=== PATIENT | male | born 1945 | race Caucasian/White ===

== ENCOUNTER → 2016-04-07 | Outpatient (CLI) | payer BC ==
--- NOTE | 2016-04-07 10:41 | DIAGNOSTIC IMAGING REPORT ---
TWO VIEW CHEST CLINICAL HISTORY: Bronchitis. FINDINGS: PA and lateral chest radiographs are compared to study dated 09/10/2010. The heart is mildly enlarged. The pulmonary vasculature is noncongested. Chronic interstitial thickening is similar to previous. The lungs and pleural spaces are otherwise clear. There is no pneumothorax. The skeletal structures are osteopenic. Mild degenerative change is noted in the thoracic spine. IMPRESSION: Mild cardiac enlargement with no active disease in the chest. Electronically signed by: Nicholas Castillo M.D. 04/07/2016 10:39 AM Dictated Date/Time: 04/07/2016 10:38 AM
== END | disposition home or self-care (01) ==
LOC: C.RAD 10:12
PROVIDERS: ATTEND Internal Medicine
DX: J40 Bronchitis, not specified as acute or chronic (principal)

== ENCOUNTER → 2016-08-10 | Outpatient (CLI) | payer BC ==
[2016-08-10 13:31] LABS: ESTIMATED AVERAGE GLUCOSE 123 mg/dl; HA1C FLAG Normal (Normal)
[2016-08-10 14:32] LABS: BLOOD UREA NITROGEN 13 mg/dl (7-18); BUN/CREATININE RATIO 12.7 (10-20); CARBON DIOXIDE 29 mmol/L (21-32); CHLORIDE 107 mmol/L (98-107); GLUCOSE 106 mg/dl (70-99); SODIUM 142 mmol/L (136-145)
[2016-08-10 14:35] LABS: CHOLESTEROL 133 mg/dl (0-200); CHOLESTEROL/HDL RATIO 2.5; HDL CHOLESTEROL 54 mg/dl; TRIGLYCERIDES 83 mg/dl (0-150); VERY LOW DENSITY LIPOPROT CALC 17 mg/dl
== END | disposition home or self-care (01) ==
LOC: C.LABSPEC 12:10
PROVIDERS: ATTEND Internal Medicine
DX: R73.9 Hyperglycemia, unspecified (principal); I10 Essential (primary) hypertension; E78.5 Hyperlipidemia, unspecified

== ENCOUNTER → 2017-02-11 | Outpatient (CLI) | payer BC ==
[2017-02-11 12:54] LABS: BASO % 0.3 %; BASO ABS # 0.02 K/uL (0-0.2); COMPLETE YES; EOS % 2.4 %; HEMATOCRIT 42.8 % (42-52); IG% 0.2 %; LYMPH % 26.9 %; LYMPH ABS # 1.78 K/uL (1.2-3.4); MEAN CELL VOLUME 94.5 fL (80-100); MEAN CORPUSCULAR HEMOGLOBIN 31.8 pg (25-34); MEAN CORPUSCULAR HGB CONC 33.6 g/dl (32-36); MEAN PLATELET VOLUME 9.9 fL (7.4-10.4); MONO % 10.4 %; NEUT % 59.8 %; PLATELET COUNT 220 K/uL (130-400); RED BLOOD COUNT 4.53 M/uL (4.7-6.1); WHITE BLOOD COUNT 6.62 K/uL (4.8-10.8)
[2017-02-11 12:58] LABS: ESTIMATED AVERAGE GLUCOSE 120 mg/dl; HA1C FLAG Normal (Normal)
[2017-02-11 13:50] LABS: ALT/SGPT 28 U/L (12-78); AST/SGOT 17 U/L (15-37); BLOOD UREA NITROGEN 16 mg/dl (7-18); BUN/CREATININE RATIO 15.3 (10-20); CALCIUM 8.6 mg/dl (8.5-10.1); CARBON DIOXIDE 23 mmol/L (21-32); CHLORIDE 105 mmol/L (98-107); CHOLESTEROL 142 mg/dl (0-200); CREATININE 1.06 mg/dl (0.60-1.40); GLUCOSE 98 mg/dl (70-99); POTASSIUM 3.9 mmol/L (3.5-5.1); SODIUM 139 mmol/L (136-145)
[2017-02-11 14:00] LABS: ALB/GLOB RATIO 1.1 (0.9-2); ALKALINE PHOSPHATASE 85 U/L (45-117); CHOLESTEROL/HDL RATIO 2.8; HDL CHOLESTEROL 50 mg/dl; TRIGLYCERIDES 138 mg/dl (0-150); VERY LOW DENSITY LIPOPROT CALC 28 mg/dl
[2017-02-11 14:33] LABS: LYME DISEASE AB IGG NEG (NEG); LYME DISEASE AB IGM NEG (NEG)
== END | disposition home or self-care (01) ==
LOC: C.LABSPEC 12:23
PROVIDERS: ATTEND Internal Medicine
DX: I10 Essential (primary) hypertension (principal); E78.5 Hyperlipidemia, unspecified; R73.9 Hyperglycemia, unspecified; R53.83 Other fatigue; M25.50 Pain in unspecified joint

== ENCOUNTER → 2017-02-11 | Outpatient (CLI) | payer BC | LOC: C.LABSPEC 17:41 | PROVIDERS: ATTEND Internal Medicine | DX: Z12.11 Encounter for screening for malignant neoplasm of colon (principal) ==

== ENCOUNTER → 2017-08-12 | Outpatient (CLI) | payer BC ==
[2017-08-12 14:25] LABS: BLOOD UREA NITROGEN 10 mg/dl (7-18); CARBON DIOXIDE 28 mmol/L (21-32); CHOLESTEROL 125 mg/dl (0-200); CREATININE 1.05 mg/dl (0.60-1.40); GLUCOSE 104 mg/dl (70-99); LDL CHOLESTEROL (DIRECT) 67 mg/dl; POTASSIUM 3.9 mmol/L (3.5-5.1); SODIUM 140 mmol/L (136-145)
[2017-08-13 06:15] LABS: HEMOGLOBIN A1C 5.9 % (4.5-5.6)
== END | disposition home or self-care (01) ==
LOC: C.LABSPEC 12:26
PROVIDERS: ATTEND Internal Medicine
DX: R73.9 Hyperglycemia, unspecified (principal); I10 Essential (primary) hypertension; E78.5 Hyperlipidemia, unspecified

== ENCOUNTER 2019-08-31 09:43 | Inpatient (IN) ==
--- NOTE | 2019-08-31 11:50 | XCELERA ---
[id number]
[2019-08-31] MEDS ORDERED: ASPIRIN 325 MG ECTAB PO ONE (12:43)
--- NOTE | 2019-08-31 13:07 | Pre Anesthesia Assessment ---
Date of Service August 31, 2019 Pre Sedation Assessment Vital Signs Temp Pulse Resp BP Pulse Ox 08/31/19 12:10 37.4 C 69 18 147/83 H 98 Cardiovascular + regular rate Respiratory + respiratory effort normal Pre-Sedation Airway Assessment Smoking Status: Never smoker Hx Sleep Apnea: No Short, Thick Neck: No Thyromental Distance: > or= 3.5 Finger Breadths Oral Cavity: + Dentures Mallampati Class: I ASA: ASA3 NPO Status Date of Last Intake of Fluids: 08/30/19 Time of Last Intake of Fluids: 21:00 Date of Last Intake of Solid Food: 08/30/19 Time of Last Intake of Solid Foods: 21:00 Procedure Planning Contraindications for Sedation: none Current Medications Reviewed: Yes Notes The planned sedation has been discussed with the patient. Informed Consent was obtained. I have identified the patient, determined the appropriateness of sedation and have assessed the patient immediately prior to the procedure. All medicine(s) and interventions are by my order.
[2019-08-31] MEDS ORDERED: NITROGLYCERIN/D5W 100MCG/ML 20ML SYR ONE (13:28)
[2019-08-31] MEDS ORDERED: HEPARIN (PORCINE) 1000 UNIT/ML 10 ML (CATH LAB USE ONLY) ONE ×2 (13:28→15:08)
[2019-08-31] MEDS ORDERED: MIDAZOLAM HCL 1 MG/ML 2ML VIAL ONE ×2 (13:28→15:10)
[2019-08-31] MEDS ORDERED: fentaNYL citrate 100 MCG/2 ML VIAL ONE (13:28)
[2019-08-31] MEDS ORDERED: NiCARDipine HCL INJ 2.5 MG/ML 10 ML AMP ONE (13:28)
[2019-08-31 13:57] LABS: Hematocrit (blood only) 44.2 % (42-52); Mean Corpuscular Hemoglobin 31.5 pg (25-34); Mean Corpuscular Hgb Conc 33.9 g/dL (32-36); Mean Corpuscular Volume 92.9 fL (80-100); Mean Platelet Volume 9.8 fL (7.4-10.4); Platelet Count 253 K/uL (130-400); RDW Coefficient of Variation 13.1 % (11.5-14.5); RDW Standard Deviation 44.5 fL (36.4-46.3); Red Blood Count 4.76 M/uL (4.7-6.1); White Blood Count 6.88 K/uL (4.8-10.8)
[2019-08-31 13:58] LABS: Est GFR (African American) 72.8; Est GFR (Non-African American) 62.8; Potassium 3.8 mmol/L (3.5-5.1)
[2019-08-31 14:00] LABS: Prothrombin Time 10.3 Seconds (9.0-12.0)
[2019-08-31] MEDS ORDERED: DOPamine 400MG / 250ML D5W (CATH LAB USE ONLY) ONE (14:06)
[2019-08-31] MEDS ORDERED: ONDANSETRON INJ 2 MG/ML 2 ML VIAL ONE (14:08)
--- NOTE | 2019-08-31 15:31 | Cardiac Catheterization ---
[facility] Data: Digital Production Manager Cardiac Status Clinical evaluation leading to the procedure CAD Presenation: Positive Stress Test Diagnostic Physicians Name: Foster Edwards MD Closure Device Recommendations: PCI without planned CABG Cardiac Cath Procedure Full Procedure Date August 31, 2019 Pre-Procedure Diagnosis Pre-Procedure Diagnosis: Angina and Positive Stress Test AUC Score AUC Score: 7 Post-Procedure Diagnosis Post-Procedure Diagnosis: Severe CAD Procedure(s) Performed Procedure(s) Performed: Coronary Angiography and Left Heart Cath Investment Specialist Foster Edwards MD Stock Replenisher(s) none Estimated Blood Loss Estimated Blood Loss: 10cc Medication(s) Medication(s): Dopamine, Fentanyl, Heparin, Lidocaine 1%, Nicardipine, Nitroglycerin and Versed Summary of Findings Procedure performed: Left heart catheterization, coronary angiography Staff roll off driver: Foster Edwards MD Indication: The patient is a 74-year-old gentleman without a known history of cardiac disease who is been having exertional symptoms of chest discomfort. He underwent stress echocardiography today which was positive in the early stages for evidence of ischemia. Procedure detail: The patient was informed of the risk benefits and alternatives to the intended procedure. He understood and wished to proceed. He was taken to the cardiac catheterization suite in a fasting state. Conscious sedation was administered per protocol and the patient was monitored electrocardiographically throughout today's procedure. The right radial area was prepped and draped in usual sterile fashion. This area was anesthetized using subcutaneous ministration of lidocaine solution. The right radial artery was accessed using Seldinger technique and a 5 [place] arterial sheath was placed at the site over guidewire. The sheath was used to felt a passage of the cardiac catheters for selective c oronary angiography and left heart catheterization. Angiography performed in multiple orthogonal views prior to removal of the catheter. There was initial period of hypotension associated with administration of vasodilators. This was reversed with fluid administration and a transient period of dopamine infusion. Patient otherwise tolerated procedure well. There were no other complications. Equipment used: 5 [place] 4 Coronary angiography Left main: Left main was short and bifurcated into the left anterior descending and left circumflex arteries Left anterior descending: Left anterior descending was a large transapical vessel. He had a complex 90% lesion in its proximal portion. It produced 2 large diagonal branches both of which he had moderate disease throughout. There were luminal irregularities in the distal portion of the vessel. Left circumflex: Left circumflex was a nondominant vessel. It produced essentially a single large OM system. There was a medium size ongoing AV groove vessel. There was a 50% stenosis in the proximal portion of the left circumflex. The remainder of the vessel had no obstructive lesions Right coronary artery: The right coronary artery was noted to be calcified. He had luminal irregularities throughout its course. Most severe stenosis is approximately 50% in its proximal portion. Pullback across the aortic valve demonstrated a aortic valve gradient of 20 mmHg Hemodynamics Rest Ao:: 56/34 mmHg Final Ao: 118/61 mmHg LV: 127/4 mmHg with left ventricular end-diastolic pressure of 16 mmHg Recommendations Recommendations: PCI without planned CABG Specimens Specimens: None Radiation Exposure (mGy) 798 Contrast (mls) 50 Fluids (cc crystalloids) Fluids (cc crystalloids): 910 Procedural Complication(s) Transient period of hypotension after administration of vasodilators and sedation Disposition PCU I attest to the content of the Intraoperative Record and any orders documented therein. Any exceptions are noted below. [facility] Procedure Codes Cardiac Catheterization Procedure 1: Cardiovascular Cath Procedures: 17936 Coronaries and LHC (+/-LV) Moderate Sedation Procedure 1: Sedation/Anesthesia: 68590 Mod Sedation by the same physician;Init15 Min Child Age 5 & Up Procedure 2: Sedation/Anesthesia: 85771 Mod Sedation by the same physician; Ea [id number] Minutes PG Care Time/CCT Total # of Minutes Spent Total Time Spent with Patient: Total time spent is greater than 50% in coordination of care (as documented) at patient's floor/unit and/or counseling patient:
[2019-08-31] MEDS ORDERED: TICAGRELOR 90 MG TAB PO ONE (16:01)
[2019-08-31] MEDS ORDERED: ACETAMINOPHEN 325 MG TAB PO PRN (16:24)
[2019-08-31] MEDS ORDERED: ONDANSETRON INJ 2 MG/ML 2 ML VIAL IV PRN (16:24)
[2019-08-31] MEDS ORDERED: SODIUM CHLORIDE 0.9% 1000ML 1,000 ML IV SCH (16:30)
--- NOTE | 2019-08-31 16:37 | Post Anesthesia Assessment ---
Date of Service August 31, 2019 Post Sedation Assessment Vital Signs Temp Pulse Resp BP Pulse Ox 08/31/19 16:25 65 18 120/75 96 08/31/19 16:10 78 18 139/72 96 08/31/19 12:10 99.3 F 69 18 147/83 H 98 Recovery Score Activity: Moves 4 extremities Respiration: Deep Breath/Cough Circulation: +/-20% PreAnes Value Consciousness: Fully Awake Oxygen Saturation: > 92% On Room Air Post Anesthesia Score: 10 Discharge Sedation Level of Care: Fast Track Phase II Post Sedation Plan On clinical assessment, the patient appears to have tolerated the sedation without complications. Patient is recovering as anticipated. Patient will continue to be monitored by nursing and may be discharged when sedation discharge criteria are met per below protocol. Upon Completions of procedure up to 15 minutes continue every 5 minute vital signs and the P.A.R. score; then discharge to a Phase I or Fast Track to Phase II per the following guidelines: * Discharge Patient to appropriate Phase II area if PAR is 8 or greater or return to pre- procedure baseline. The post - procedure orders will be as directed. * If PAR score is less than 8 or not return to pre-procedure baseline then patient will follow Phase I monitoring till PAR is reached for Phase II. The Phase I may be done in procedure room or may call to secure a Phase I area. * If naloxone or flumazenil are used for reversal, hold in Phase I for continued monitoring from when last reversal dose was given for a minimum of 60 minutes or longer pending the nurse and/or physician discretion of patient condition before discharge to Phase II. Please call the Sedation Physician to re-evaluate and complete post-note for discharge to Phase II area. Do NOT discharge from procedure sedation or Phase 1 until post- sedation evaluat ion note is complete by procedure /sedation MD Sedation Discharge Instructions to be given to the patient at discharge to home.
--- NOTE | 2019-08-31 16:43 | Cardiac Catheterization ---
[facility] Data: Market Research Intern Cardiac Status Clinical evaluation leading to the procedure CAD Presenation: Positive Stress Test Anginal Classification: CCS III Heart Failure: No Cardiogenic Shock within 24 Hours: No Cardiac Arrest within 24 Hours: No Imaging Studies Past 6 Months: Yes Stress Studies Past 6 Months: Yes Stress Echocardiogram: Yes - Positive and Risk/Extent of Ischemia (High) Diagnostic Physicians Name: Foster Lunsford MD Status: Elective Closure Device Percutaneous Entry Location: Radial Closure Device: Radial Band Recommendations: PCI without planned CABG PCI Indication: + Stress Test and Unstable Angina Lesion Segment Name: ostial LAD Culprit Artery: Yes Stenosis Prior to Rx (%): 95 Chronic Total Occlusion: No IVUS: Yes FFR: No Pre-Procedure BRIAN Flow: 2 Previously Treated Lesion: No Lesion Complexity: High/C Lesion Length (mm): 12 Thrombus Present: Yes Bifurcation Lesion: Yes Guidewire Across Lesion: Stenosis Post-Procedure (%): 0 Post-Procedure BRIAN Flow: 3 Devices(s) Deployed: Yes Yes Intraprocedure Events Significant Disection: No Perforation: No Cardiac Cath Procedure Full Procedure Date August 31, 2019 Pre-Procedure Diagnosis Pre-Procedure Diagnosis: Angina and Positive Stress Test AUC Score AUC Score: 7 Post-Procedure Diagnosis Post-Procedure Diagnosis: Severe CAD and Successful PCI Procedure(s) Performed Procedure(s) Performed: Coronary Angiography, Left Heart Cath, Drug Eluting Stent, IVUS and Fractional Flow [place] Check Writer Salesperson Foster Lunsford MD Therapeutic Massage Technician(s) Sylvestre Estimated Blood Loss Estimated Blood Loss: 20 Medication(s) Medication(s): Fentanyl, Heparin, Lidocaine 1%, Nicardipine, Nitroglycerin and Versed Medication(s): Ticagrelor Summary of Findings Indication: High risk abnormal stress test Access: 6 Fr slender right radial artery Catheters: JL 3.5 guide Findings: For full details of patient's coronary angiography please see cath report dictated by Dr. Edwards. Briefly, patient found to have an acute 95+% ostial LAD stenosis along with moderate ostial circumflex disease. Decision to further evaluate with IVUS and proceed with possible PCI. IVUS/FFR of proximal circumflex Left main cannulated with JL 3.5 guide Second Time Worker 50 wire passed into distal circumflex [place] IVUS catheter placed into mid circumflex Pullback revealed moderate eccentric plaque involving ostial/proximal circumflex. Left main with circumferential calcification, mild to moderate stenosis, minimal CSA 9.7 mm. ACIST FFR catheter placed into mid circumflex Pd/Pa 0.97 In the setting of moderate nonobstructive circumflex disease decision to proceed with PCI of LAD -- PCI -- Antithrombotic therapy: Heparin, ticagrelor Procedure: Second Time Worker [address] and circumflex Whisper wire passed across ostial LAD lesion into distal LAD Ostial LAD lesion predilated with 2.5 and 2.75 compliant balloons Dilated lesion stented with 2.75 x 15 mm Xience Angelica drug-eluting stent Stent post-dilated with 3.0 noncompliant balloon IC vasodilators administered for spasm Repeat IVUS into LAD showed well apposed LAD stent extending back to distal aspect of left main Post procedure BRIAN 3 flow, stent reasonably expanded with minimal residual stenosis and no apparent cardiac complications. Unchanged moderate stenosis in ostial circumflex. Arterial Closure: TR band Summary: 1. Successful PCI of ostial LAD with single drug-eluting stent (2.75 x 15 mm Xience Angelica; postdilated with 3.0 NC). 2. Calcified, eccentric moderate nonobstructive ostial circumflex disease (iFR 0.97). Recommendations: To PCU for continued monitoring Loaded with ticagrelor 180 mg in cath Continue dual-antiplatelet therapy for at least 1 year Continue statin, and ASCVD risk factor modification Consult cardiac Rehab Hemodynamics Rest Ao:: 122/59/76 Final Ao: 125/63/97 LV: -- Recommendations Recommendations: PCI without planned CABG Specimens Specimens: None Radiation Exposure (mGy) 3021 Contrast (mls) 140 Fluids (cc crystalloids) Fluids (cc crystalloids): 1082 Drains Drains: none Anesthesia moderate Procedural Complication(s) None Disposition PCU I attest to the content of the Intraoperative Record and any orders documented therein. Any exceptions are noted below. [facility] Card Cath Procedure Codes Cardiac Catheterization Procedure 1: Cardiovascular Cath Procedures: 56012 (Doppler) Pressure Wire Therapeutic Services & Ancillary Proc Procedure 1: Cardiovascular Tx and Anc Procedures: 03914 IV Ultrasound (Coronary or Graft) Procedure 2: Cardiovascular Tx and Anc Procedures: 17695 IV Ultrasound Ea addl vessel Moderate Sedation Procedure 1: Sedation/Anesthesia: 70024 Mod Sedation by a different physician ;Init15 Min Child Age 5&Up Procedure 2: Sedation/Anesthesia: 55836 Mod Sedation by a different physician;Ea Additional 15 Minutes Stenting Procedure 1: Cardiovascular Stent Procedures: 00880 Perc transcatheter placement of intracoronary stent(s), with ang PG Care Time/CCT Total # of Minutes Spent Total Time Spent with Patient: Total time spent is greater than 50% in coordination of care (as documented) at patient's floor/unit and/or counseling patient:
[2019-09-01] MEDS ORDERED: TICAGRELOR 90 MG TAB PO SCH (07:00)
[2019-09-01 07:52] LABS: Basophils # (auto) 0.03 K/uL (0-0.2); Basophils % (auto) 0.4 %; Eosinophils # (auto) 0.16 K/uL (0-0.5); Eosinophils % (auto) 2.1 %; Hematocrit (blood only) 39.7 % (42-52); Hemoglobin 13.3 g/dL (14.0-18.0); Immature Granulocytes # (auto) 0.03 K/uL (0.00-0.02); Immature Granulocytes % (auto) 0.4 %; Lymphocytes % (auto) 21.9 %; Mean Corpuscular Hemoglobin 31.1 pg (25-34); Mean Corpuscular Hgb Conc 33.5 g/dL (32-36); Mean Corpuscular Volume 92.8 fL (80-100); Mean Platelet Volume 9.4 fL (7.4-10.4); Monocytes # (auto) 0.82 K/uL (0.11-0.59); Monocytes % (auto) 10.5 %; Neutrophils # (auto) 5.04 K/uL (1.4-6.5); Neutrophils % (auto) 64.7 %; Platelet Count 220 K/uL (130-400); RDW Coefficient of Variation 13.2 % (11.5-14.5); RDW Standard Deviation 44.9 fL (36.4-46.3); Red Blood Count 4.28 M/uL (4.7-6.1); White Blood Count 7.78 K/uL (4.8-10.8)
[2019-09-01] MEDS ORDERED: lisinopriL 20 MG TAB PO SCH (09:00)
[2019-09-01] MEDS ORDERED: ASPIRIN 81 MG ECTAB PO SCH (09:00)
[2019-09-01] MEDS ORDERED: PANTOprazole 40 MG TAB PO SCH (09:00)
[2019-09-01] MEDS ORDERED: ATORVASTATIN 40 MG TAB PO SCH (09:00)
--- NOTE | 2019-09-01 09:27 | Discharge Summary ---
Date of Service September 01, 2019 Admission HPI Per Admitting Provider Mr. Granado is a 74-year-old male with a past medical history significant for hypertension, dyslipidemia, and GERD who was referred to [facility] for a stress echocardiogram by his PCP due to complaints of exertional chest tightness. The patient states that he started walking outside this spring, and he noted that with ambulating up an incline, he would have substernal chest tightness with associated shortness of breath. His symptoms resolved when he would slow down his pace. Over the last 1-2 weeks, he began noting the discomfort with walking on ground level. Once again, his symptoms would resolve with slowing down. He did not experience associated nausea, vomiting, or diaphoresis, and he never experienced any rest symptoms. Due to the chest discomfort, he was referred for a stress echo by his PCP. The patient exercised for a total of 3:26 minutes. He developed chest tightness and shortness of breath 3 minutes into exercise. His EKG was abnormal with ST segment depression with exercise, and echocardiogram also showed distal anterolateral wall motion abnormality with exercise. The patient's chest discomfort resolved 2 minutes into recovery. Discharge Data Consultations 08/31/19 16:29 Consult Cardiac Rehabilitation Routine Procedures Performed Operation Date: 08/31/19 13:30 Actual Procedures s Drug Eluting Stent SGl Vessel - Huy Lunsford MD p Cath, Left with Cors and Vent - Huy Edwards MD s Cineradiography w/Routine Exam - Huy Lunsford MD s IVUS Coronary Single Vessel - Huy Lunsford MD s IVUS Coronary each ADDL Vessel - Huy Lunsford MD s Fraction Flow Lane SGL Ves - uHy Lunsford MD Hospital Course (1) CAD (coronary artery disease): After grossly positive, high risk stress test patient underwent cardiac catheterization which revealed a complex, acute appearing 95% proximal LAD stenosis along with 50% ostial circumflex stenosis. Left main/ostial circumflex was evaluated with IVUS and FFR and found to be calcified, chronic and nonobstructive. Underwent PCI of ostial LAD with placement of a single drug- eluting stent (2.75 x 15 mm Xience Angelica). Procedure uncomplicated. Admitted for observation overnight. Had no recurrent chest pain. No arrhythmia on telemetry. On post procedure day 1 no apparent access site complications, labs stable and was feeling well. Discharged on 2 antiplatelet therapy with aspirin, ticagrelor. Follow-up with cardiology in 2 weeks. Discharge Instructions Home Medications lisinopril 20 mg PO DAILY 08/31/19 [History Confirmed 08/31/19] omeprazole 10 mg PO DAILY 08/31/19 [History Confirmed 08/31/19] aspirin 81 mg PO QAM #30 tab 09/01/19 [Rx] atorvastatin 80 mg PO QAM #30 tab 09/01/19 [Rx] ticagrelor [Brilinta] 90 mg PO BID #60 tab 09/01/19 [Rx] Coding Level of Care Code 23561 OBS Care - Discharge Diagnoses CAD (coronary artery disease) I25.10
== END 2019-09-01 14:03 | disposition home or self-care (01) | DRG 247 ==
LOC: CPL 09:43 → CC 09:43 → EDSTATUS 13:30 → 2S 14:28

== ENCOUNTER 2023-10-30 18:06 | Observation (INO) ==
[2023-10-30] MEDS: ONDANSETRON INJ 2 MG/ML 2 ML VIAL IV STA (18:35)
[2023-10-30] MEDS: ASPIRIN 81 MG CHEW PO STA (18:35)
[2023-10-30 18:39] LABS: iSTAT Creatinine 1.3 mg/dl (0.6-1.3); iSTAT Hemoglobin 14.3 g/dl (14.0-18.0); iSTAT Ionized Calcium 1.15 mmol/l (1.12-1.32); iSTAT Potassium 4.2 mmol/L (3.3-5.0)
--- NOTE | 2023-10-30 18:43 | Emergency Department Note ---
Impression & Plan Atypical chest pain ED Provider Note Provider: Yoseph Bates MD DATE OF SERVICE: 10/30/2023 CHIEF COMPLAINT: Chest discomfort, clammy, vomiting HISTORY OF PRESENT ILLNESS: Patient is a 78-year-old gentleman history of stent in 2019 presenting here reporting was clean looking earlier this afternoon about an hour prior to arrival moving large pans. Started feel little clammy and had a little pressure in the chest. Sat down and went to have some food and began to feel very nauseous and vomited. Significant chest pressure and diaphoresis at that time. No syncope. [place] a bit dizzy. Symptoms improved still little bit of pressure on the chest. No abdominal pain. Denies significant shortness of breath. No trauma. Did have stent 4 years ago but found on a stress test as he was having some exercise intolerance. does report he is been a little fatigued recently. No radiation of pain to the arms or jaw or back. PAST MEDICAL HISTORY: As noted above MEDICATIONS: Reviewed home medications SOCIAL HISTORY: , non-smoker PHYSICAL EXAM: GENERAL: alert and oriented in no acute distress on stretcher Head: normocephalic and atraumatic EYES: No injection, discharge or icterus. EOMI. NECK: Trachea midline. ENT: Mucous membranes pink and moist. LUNGS: Airway patent. No retractions. Breath sounds clear with good air entry bilaterally. HEART: Regular rate and rhythm. No chest wall tenderness ABDOMEN: Soft and non-tender, without guarding or rebound. SKIN: Acyanotic, warm, dry, without rashes EXTREMITIES: Without swelling, tenderness or deformity NEUROLOGICAL: No focal deficits. No aphasia. No facial droop or slurred speech. Normal strength and tone in the extremities. Sensation to gross touch normal. Ambulatory. EK bpm sinus rhythm first-degree AV block. Right bundle branch block noted. No acute ST segment elevation or depression with QTc 44 CONTINUOUS CARDIAC MONITORING: was ordered and showed a heart rate of 60s to 80s bpm in normal sinus rhythm Patient's laboratory studies and imaging reviewed. Differential includes Cardiac ischemia, aortic dissection, pulmonary embolism, pneumothorax, pneumonia, pericarditis, myocarditis, esophageal rupture, GERD, cholecystitis, pancreatitis, musculoskeletal, as well as other pathologies. IMPRESSION/MEDICAL DECISION MAKING: Patient with some chest pressure cardiac history. EKG without STEMI. Will give nitro here. Received aspirin and Zofran as well as some IV fluid. Some decreased intake today but no other significant illnesses. Benign abdomen. Doubt acute intra-abdominal pathology or obstruction. Chest x-ray without significant abnormality per radiology report In my interpretation as well. No significant anemia or leukocytosis on blood work. No significant electrolyte abnormality or signs of renal dysfunction. No evidence of hepatitis or pancreatitis. Negative COVID flu and RSV testing. Initial troponin returned at 6.2 normal. Do question if this could be anginal/anginal equivalent in nature. Did receive nitroglycerin here. On reassessment the patient states that symptoms have improved but entirely resolved. Discussed with the patient and given the significant findings that he has with cardiac history and his age and risk factors that recommend further observation and overnight. Patient was agreeable. Hospitalist was consulted. DIAGNOSIS: Chest pain, nausea DISPOSITION: Hospitalist will evaluate Patient was agreeable with this plan. Past Med/Surg History Problem List (Updated 10/30/23 @ 20:56 by Mau Bazan MD) Nausea and vomiting Atypical chest pain (Acute) History of urethral stricture Quadriceps strain Dysuria Testicular pain, right Groin pain Lumbar disc herniation Left L4-5, present since 2013 Disc degeneration, lumbosacral Sensorineural hearing loss (SNHL) of both ears Benign prostatic hyperplasia with urinary hesitancy Prediabetes Primary hypertension Rotator cuff arthropathy of right shoulder Mitral regurgitation Aortic stenosis Mild to moderate with mild to moderate regurgitation as well echocardiogram 08/31/2019 CAD (coronary artery disease) PCI to the proximal LAD with Xience drug-eluting stent 08/31/2019 Dyslipidemia Medical History Splenic laceration Basal cell carcinoma of right cheek Fear of needles Spinal stenosis History of herniated intervertebral disc Degenerative disc disease, lumbar Shoulder problem Acid reflux Tinnitus of both ears Hypertension SNHL (sensorineural hearing loss) Surgical History History of left cataract surgery History of colonoscopy History of heart artery stent Family History Grandmother Family history of diabetes mellitus Social History Smoking Status: Never smoker Second Hand Exposure: No; Do You Dip or Chew Tobacco: No; Hx Alcohol Use: No Hx Substance Use: No Preferred Language: Romansh Communication Ability: Effective Pole Tester Required: No Beliefs That Will Affect Care: None Current Living Situation: Spouse current occupational status: retired Other Information That Helps Us Care for You: No Feels Safe at Home: Yes Safety Concerns: Feels Safe At This Time Assistive Devices: Denture - Upper and Hearing Aid - Bilateral Allergies Allergies Allergy/AdvReac Type Severity Reaction Status Date / Time No Known Allergies Allergy Verified 10/30/23 19:33 Home Meds Home Medications Medication Instructions Recorded Confirmed cholecalciferol (vitamin D3) 125 125 mcg PO DAILY 12/12/21 10/30/23 mcg (5,000 unit) capsule finasteride 5 mg tablet 5 mg PO QAM 10/30/23 10/30/23 Previous Rx's Medication Instructions Recorded aspirin 81 mg tablet,delayed 81 mg PO QAM #30 tabs 09/01/19 release amlodipine 5 mg tablet 5 mg PO DAILY #90 tabs 02/26/23 lisinopril 20 mg tablet 20 mg PO QPM #90 tabs 02/26/23 atorvastatin 80 mg tablet 80 mg PO QAM #90 tabs 03/31/23 omeprazole 20 mg capsule,delayed 20 mg PO DAILY #90 caps 03/31/23 release tamsulosin 0.4 mg capsule 0.4 mg PO BID #60 caps 07/15/23 Results & Data (ED) Vital Signs Vital Signs - 24 hr 10/30/23 18:08 10/30/23 18:12 10/30/23 18:15 Temperature 36.8 C Temperature Source Temporal Artery Scan Pulse Rate 85 80 Pulse Rate [Apical] Pulse Rate from SpO2 Sensor Respiratory Rate 22 Respiratory Effort / Characteristics Non-Labored Spontaneous Respiratory Depth Normal Respiratory Pattern Regular Blood Pressure 130/73 Blood Pressure [Right Arm] Blood Pressure Mean 92 Blood Pressure Mean [Right Arm] Pulse Oximetry 98 98 Oxygen Delivery Method Room Air Room Air Sepsis Recent Fever Within 48 Hours No Sepsis New/Unexplained Change in Mental Status No Sepsis Action Taken by Nursing No Action Required 10/30/23 18:15 10/30/23 18:30 10/30/23 19:25 Temperature Temperature Source Pulse Rate 77 78 Pulse Rate [Apical] Pulse Rate from SpO2 Sensor Respiratory Rate 14 16 Respiratory Effort / Characteristics Respiratory Depth Respiratory Pattern Blood Pressure 153/79 H 116/73 Blood Pressure [Right Arm] Blood Pressure Mean 103 79 Blood Pressure Mean [Right Arm] Pulse Oximetry 98 97 Oxygen Delivery Method Room Air Sepsis Recent Fever Within 48 Hours Sepsis New/Unexplained Change in Mental Status Sepsis Action Taken by Nursing 10/30/23 19:29 10/30/23 19:36 10/30/23 20:00 Temperature Temperature Source Pulse Rate 83 Pulse Rate [Apical] 71 Pulse Rate from SpO2 Sensor 83 Respiratory Rate 17 21 Respiratory Effort / Characteristics Non-Labored Spontaneous Respiratory Depth Normal Respiratory Pattern Regular Blood Pressure 134/70 108/62 Blood Pressure [Right Arm] 116/73 Blood Pressure Mean 91 70 Blood Pressure Mean [Right Arm] 87 Pulse Oximetry 92 91 Oxygen Delivery Method Room Air Sepsis Recent Fever Within 48 Hours Sepsis New/Unexplained Change in Mental Status Sepsis Action Taken by Nursing 10/30/23 20:03 10/30/23 20:18 10/30/23 20:39 Temperature Temperature Source Pulse Rate 62 67 66 Pulse Rate [Apical] Pulse Rate from SpO2 Sensor 70 69 68 Respiratory Rate 16 23 23 Respiratory Effort / Characteristics Respiratory Depth Respiratory Pattern Blood Pressure 108/62 107/61 Blood Pressure [Right Arm] Blood Pressure Mean 77 76 Blood Pressure Mean [Right Arm] Pulse Oximetry 97 95 95 Oxygen Delivery Method Sepsis Recent Fever Within 48 Hours Sepsis New/Unexplained Change in Mental Status Sepsis Action Taken by Nursing 10/30/23 21:03 10/30/23 21:24 10/30/23 22:24 Temperature Temperature Source Pulse Rate 63 68 66 Pulse Rate [Apical] Pulse Rate from SpO2 Sensor 64 65 Respiratory Rate 23 14 Respiratory Effort / Characteristics Respiratory Depth Respiratory Pattern Blood Pressure 122/72 118/79 Blood Pressure [Right Arm] Blood Pressure Mean 88 92 Blood Pressure Mean [Right Arm] Pulse Oximetry 94 95 Oxygen Delivery Method Sepsis Recent Fever Within 48 Hours Sepsis New/Unexplained Change in Mental Status Sepsis Action Taken by Nursing Laboratory Data 10/30/23 18:17 10/30/23 18:17 Lab Results 10/30/23 10/30/23 10/30/23 Range/Units 18:17 18:27 21:37 WBC 7.69 (4.8-10.8) K/ul RBC 4.47 L (4.70-6.10) M/uL Hgb 14.1 (14.0-18.0) g/dl POC Hgb 14.3 (14.0-18.0) g/dl Hct 42.3 (42.0-52.0) % POC Hct 42 (42-52) % MCV 94.6 (80.0-100.0) fL MCH 31.5 (25.0-34.0) pg MCHC 33.3 (32.0-36.0) g/dL RDW Std Deviation 45.8 (36.4-46.3) fL RDW Coeff of Wild 13.2 (11.5-14.5) % Plt Count 177 (130-400) K/uL MPV 10.0 (9.4-12.4) fL Immature Gran % (Auto) 0.4 % Neut % (Auto) 72.7 % Lymph % (Auto) 18.2 % [place] % (Auto) 6.9 % Eos % (Auto) 1.4 % Baso % (Auto) 0.4 % Neut # (Auto) 5.59 (1.40-6.50) K/uL Lymph # (Auto) 1.40 (1.20-3.40) K/uL [place] # (Auto) 0.53 (0.11-0.59) K/uL Eos # (Auto) 0.11 (0.00-0.50) K/uL Baso # (Auto) 0.03 (0.00-0.20) K/uL Immature Gran # (Auto) 0.03 (0.01-0.20) K/uL PT 10.8 (9.0-12.0) Seconds INR 1.0 (0.9-1.1) APTT 24 (21-31) Seconds PTT Ratio 0.9 POC Sodium 138 (135-144) mmol/L Sodium 137 (136-145) mmol/L POC Potassium 4.2 (3.3-5.0) mmol/L Potassium 4.2 (3.5-5.1) mmol/L POC Chloride 104 (101-112) mmol/L Chloride 104 (98-107) mmol/L Carbon Dioxide 24 (21-32) mmol/L POC Total CO2 24 (24-31) mmol/L Anion Gap 9 (3-11) POC Anion Gap 16.0 (16-25) mmol/L POC BUN 14 (7-18) mg/dl BUN 15 (6-23) mg/dl Creatinine 1.24 (0.6-1.4) mg/dl POC Creatinine 1.3 (0.6-1.3) mg/dl Est Cr Clr Drug Dosing 44.4 ml/min Est GFR ( Amer) 63.2 ml/min Est GFR (Non-Af Amer) 54.6 ml/min BUN/Creatinine Ratio 12.1 (10-20) Glucose 172 H (70-99(Fasting)) mg/dl POC Glucose (other) 166 H (70-99) mg/dl Calcium 9.5 (8.6-10.3) mg/dl POC Ioniz Calcium Renee 1.15 (1.12-1.32) mmol/l Total Bilirubin 1.1 H (0.2-1.0) mg/dl AST 22 (13-39) U/L ALT 23 (7-52) U/L Alkaline Phosphatase 98 (34-104) U/L Troponin I High Sens 6.2 9.2 (0-20) pg/ml Total Protein 6.9 (6.0-8.3) gm/dl Albumin 4.3 (3.4-5.0) gm/dl Globulin 2.6 (2.5-4.0) gm/dl Albumin/Globulin Ratio 1.7 (0.9-2) Lipase 24 (11-82) U/L SARS-CoV-2 (PCR) NEGATIVE (Negative) Influenza Type A (PCR) Negative (Neg) Influenza Type B (PCR) Negative (Neg) RSV (RT-PCR) Negative (Neg) Administered Medications Discontinued Medications Aspirin (Aspirin 81 Mg Chew) 324 mg PO NOW STA Stop: 10/30/23 18:14 Last Admin: 10/30/23 18:35 Dose: 324 mg Documented By: TATUM Sodium Chloride (Nss) 1,000 mls @ 999 mls/hr IV .Q1H1M ONE Stop: 10/30/23 19:42 Last Infusion: 10/30/23 20:55 Dose: Infused Documented By: Admin: 10/30/23 19:26 Dose: 999 mls/hr Documented By: TATUM Nitroglycerin (Nitroglycerin Sl 0.4 Mg/Tab Tab) 0.4 mg SL NOW STA Stop: 10/30/23 18:43 Last Admin: 10/30/23 19:26 Dose: 0.4 mg Documented By: TATUM Ondansetron HCl (Ondansetron Inj 2 Mg/Ml 2 Ml Vial) 4 mg IV NOW STA Stop: 10/30/23 18:14 Last Admin: 10/30/23 18:35 Dose: 4 mg Documented By: TATUM Imaging Data Radiologist's Impression: Chest X-Ray 10/30/23 18:12 XR chest 1V portable CLINICAL HISTORY: Chest pain, nonspecific TECHNIQUE: Single frontal radiograph of the chest was obtained. Comparison: None available at the time of this dictation. FINDINGS: No lines and tubes are seen. Calcified aortic knob is seen. The lungs are clear. No evidence of pleural effusion or pneumothorax. IMPRESSION: No acute chest disease. ACT 112: Negative or not required by law. Electronically signed by: Juan Cuevas M.D. 10/30/2023 6:46 PM Discharge Plan Visit Data Chief Complaint: Chest Pain Stated Complaint: VOMITING, CLAMY, CHEST PAIN, SOME DIZZINESS ED Provider: Yoseph Bates Discharge Problem: Atypical chest pain Patient Disposition: Admitted As Inpatient Discharge Instructions Interventions: ED Discharge Assessment Last Done: 10/30/23 23:04 Forms Stand Alone Forms: [facility] [employer] Prescriptions Prescriptions: No Action amlodipine 5 mg tablet 5 mg PO DAILY Qty: 90 3RF lisinopril 20 mg tablet 20 mg PO QPM Qty: 90 3RF atorvastatin 80 mg tablet 80 mg PO QAM Qty: 90 3RF omeprazole 20 mg capsule,delayed release(DR/EC) 20 mg PO DAILY Qty: 90 3RF tamsulosin 0.4 mg capsule 0.4 mg PO BID Qty: 60 5RF cholecalciferol (vitamin D3) 125 mcg (5,000 unit) capsule 125 mcg PO DAILY aspirin 81 mg Tablet,Delayed Release (Dr/Ec) 81 mg PO QAM Qty: 30 6RF finasteride 5 mg tablet 5 mg PO QAM Rx Instructions: TAKE 1 TABLET BY MOUTH DAILY Referrals Referrals: Elvi Jones MD [Primary Care Provider] -
--- NOTE | 2023-10-30 18:49 | XRay Report ---
XR chest 1V portable CLINICAL HISTORY: Chest pain, nonspecific TECHNIQUE: Single frontal radiograph of the chest was obtained. Comparison: None available at the time of this dictation. FINDINGS: No lines and tubes are seen. Calcified aortic knob is seen. The lungs are clear. No evidence of pleur al effusion or pneumothorax. IMPRESSION: No acute chest disease. ACT 112: Negative or not required by law. Electronically signed by: Juan Cuevas M.D. 10/30/2023 6:46 PM
[2023-10-30 18:58] LABS: Basophils # (auto) 0.03 K/uL (0.00-0.20); Basophils % (auto) 0.4 %; Eosinophils # (auto) 0.11 K/uL (0.00-0.50); Eosinophils % (auto) 1.4 %; Hematocrit (blood only) 42.3 % (42.0-52.0); Hemoglobin 14.1 g/dl (14.0-18.0); Immature Granulocytes # (auto) 0.03 K/uL (0.01-0.20); Immature Granulocytes % (auto) 0.4 %; Lymphocytes % (auto) 18.2 %; Mean Corpuscular Hemoglobin 31.5 pg (25.0-34.0); Mean Corpuscular Hgb Conc 33.3 g/dL (32.0-36.0); Mean Corpuscular Volume 94.6 fL (80.0-100.0); Monocytes # (auto) 0.53 K/uL (0.11-0.59); Monocytes % (auto) 6.9 %; Neutrophils # (auto) 5.59 K/uL (1.40-6.50); Neutrophils % (auto) 72.7 %; Platelet Count 177 K/uL (130-400); RDW Coefficient of Variation 13.2 % (11.5-14.5); RDW Standard Deviation 45.8 fL (36.4-46.3); Red Blood Count 4.47 M/uL (4.70-6.10); White Blood Count 7.69 K/ul (4.8-10.8)
[2023-10-30 19:22] LABS: Albumin Globulin Ratio 1.7 (0.9-2); Albumin Level 4.3 gm/dl (3.4-5.0); BUN Creatinine Ratio 12.1 (10-20); Bilirubin,Total 1.1 mg/dl (0.2-1.0); Calcium 9.5 mg/dl (8.6-10.3); Creatinine Clr Calc Pharmacy 44.4 ml/min; Est GFR (African American) 63.2 ml/min; Est GFR (Non-African American) 54.6 ml/min; Globulin 2.6 gm/dl (2.5-4.0); Potassium 4.2 mmol/L (3.5-5.1); Total Protein 6.9 gm/dl (6.0-8.3)
[2023-10-30] MEDS: SODIUM CHLORIDE 0.9% 1,000 ML IV ONE (19:26)
[2023-10-30] MEDS: NITROGLYCERIN SL 0.4 MG/TAB TAB SL STA (19:26)
[2023-10-30 19:27] LABS: Partial Thromboplastin Ratio 0.9; Partial Thromboplastin Time 24 Seconds (21-31); Prothrombin Time 10.8 Seconds (9.0-12.0)
[2023-10-30 19:29] LABS: Troponin I High Sensitivity 6.2 pg/ml (0-20)
[2023-10-30 19:33] LABS: Influenza A virus by PCR Negative (Neg); Influenza B virus by PCR Negative (Neg); RSV by PCR Negative (Neg); SARS CoV2 RNA(COVID-19) Ceph NEGATIVE (Negative)
--- NOTE | 2023-10-30 20:36 | History & Physical Report ---
Date of Service October 30, 2023 Assessment & Plan (1) Atypical chest pain: (2) CAD (coronary artery disease): (3) Aortic stenosis: (4) Primary hypertension: (5) Dyslipidemia: (6) Nausea and vomiting: (7) Benign prostatic hyperplasia with urinary hesitancy: Plan Atypical chest pain/CAD/history of stent/hypertension- The patient will be admitted to telemetry for serial cardiac enzymes, serial EKG's, cardiac rhythm monitoring and a 2-D echocardiogram with Dopplers. History of coronary artery stent in 2019 Most recent echocardiogram on 12/27/2021 with ejection fraction 60-65% Initial troponin 6.2, with follow-up ordered and pending Continue aspirin, amlodipine, lisinopril with hold parameters Nausea and vomiting- Question anginal equivalent Workup as above Zofran 4 mg IV every 6 hours as needed Status post 1 L normal saline in the ED LR at 80 mL/h x 1 L BPH with LUTS Continue tamsulosin and finasteride Hyperlipidemia- Continue atorvastatin History of Present Illness Chief Complaint: The patient presents to the emergency department with complaint of acute onset of chest pressure, nausea, clammy sensation and then vomited earlier in the day today, when he was 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 He reports his symptoms did spontaneously resolve after a short interval time. Primary Care Provider: Elvi Jones MD The patient is an 78-year-old male with a past medical history including history of urethral stricture, lumbosacral disc degeneration, SNHL bilaterally, BPH with LUTS, primary hypertension, aortic stenosis, CAD and dyslipidemia. He was moving some heavy pans at a volunteer function earlier in the day today, when he developed acute onset of chest pressure, nauseousness, clamminess. Due to his history of coronary artery disease and stents in 2019, he became concerned, and presented to the ED for assessment Allergies Allergy/AdvReac Type Severity Reaction Status Date / Time No Known Allergies Allergy Verified 10/30/23 19:33 Home Medications Medication Instructions Recorded Confirmed Type aspirin 81 mg tablet,delayed 81 mg PO QAM #30 tabs 09/01/19 10/30/23 Rx release cholecalciferol (vitamin D3) 125 125 mcg PO DAILY 12/12/21 10/30/23 History mcg (5,000 unit) capsule amlodipine 5 mg tablet 5 mg PO DAILY #90 tabs 02/26/23 10/30/23 Rx lisinopril 20 mg tablet 20 mg PO QPM #90 tabs 02/26/23 10/30/23 Rx atorvastatin 80 mg tablet 80 mg PO QAM #90 tabs 03/31/23 10/30/23 Rx omeprazole 20 mg capsule,delayed 20 mg PO DAILY #90 caps 03/31/23 10/30/23 Rx release tamsulosin 0.4 mg capsule 0.4 mg PO BID #60 caps 07/15/23 10/30/23 Rx finasteride 5 mg tablet 5 mg PO QAM 10/30/23 10/30/23 History Past Med/Surg History Problem List (Updated 10/30/23 @ 20:56 by Mau Bazan MD) Nausea and vomiting Atypical chest pain (Acute) History of urethral stricture Quadriceps strain Dysuria Testicular pain, right Groin pain Lumbar disc herniation Left L4-5, present since 2013 Disc degeneration, lumbosacral Sensorineural hearing loss (SNHL) of both ears Benign prostatic hyperplasia with urinary hesitancy Prediabetes Primary hypertension Rotator cuff arthropathy of right shoulder Mitral regurgitation Aortic stenosis Mild to moderate with mild to moderate regurgitation as well echocardiogram 08/31/2019 CAD (coronary artery disease) PCI to the proximal LAD with Xience drug-eluting stent 08/31/2019 Dyslipidemia Medical History Splenic laceration Basal cell carcinoma of right cheek Fear of needles Spinal stenosis History of herniated intervertebral disc Degenerative disc disease, lumbar Shoulder problem Acid reflux Tinnitus of both ears Hypertension SNHL (sensorineural hearing loss) Surgical History History of left cataract surgery History of colonoscopy History of heart artery stent Family History Grandmother Family history of diabetes mellitus Social History Smoking Status: Never smoker Second Hand Exposure: No; Do You Dip or Chew Tobacco: No; Hx Alcohol Use: No Hx Substance Use: No Preferred Language: Vietnamese Communication Ability: Effective Development Spec Required: No Beliefs That Will Affect Care: None Current Living Situation: Spouse current occupational status: retired Feels Safe at Home: Yes Assistive Devices: Denture - Upper, Glasses and Hearing Aid - Bilateral Review of Systems Review of Systems: The patient denies palpitations, cough, lower extremity swelling, sore throat, fevers, chills, sweats, weight change, fatigue, diarrhea , constipation, abdominal pain, pelvic pain, blood in urine or stool, dysuria, urinary frequency or urgency, memory loss, loss of consciousness, rash, abnormal bruising or bleeding, imbalance, focal weakness, numbness or tingling in arms or legs, generalized arthralgias or myalgias, back or neck pain, or night sweats. The review of systems is otherwise negative other than for that already noted above, and at least 10 systems have been reviewed. Physical Exam Physical Exam: The patient is awake, alert and oriented 3, well developed and well nourished, normocephalic and atraumatic, lying in bed and in no acute distress. HEENT--PERRL, EOMI, mucous membranes and oropharynx mildly dry. Neck--supple. No JVD. No bruits. Thyroid normal, trachea midline, no adenopathy. Heart--normal S1 and S2. No murmurs, rubs or gallops. Lungs--clear bilaterally, no respiratory distress, no accessory muscle use. Abdomen--normal bowel sounds and soft. Nontender. Nondistended, no hernias or masses, no organomegaly. Extremities--no cyanosis or clubbing. No edema. Dermatologic--normal skin turgor, normal color, no abnormal lymph nodes, no rash. Neurologic--cranial nerves II through XII grossly intact. Rheumatologic--normal range of motion. Psychiatric--normal affect. Results & Data Results & Data Vital Signs (Past 12 Hours) Vital Signs Temp Pulse Pulse Resp BP BP Pulse Ox 10/30/23 19:29 71 17 116/73 92 10/30/23 18:30 98 10/30/23 18:15 80 10/30/23 18:12 98 10/30/23 18:08 36.8 C 85 22 130/73 98 O2 Del Method 10/30/23 19:29 Room Air 10/30/23 18:30 Room Air 10/30/23 18:15 10/30/23 18:12 Room Air 10/30/23 18:08 Room Air Laboratory Results Laboratory Results WBC 7.69 K/ul (4.8-10.8) 10/30/23 18:17 RBC 4.47 M/uL (4.70-6.10) L 10/30/23 18:17 Hgb 14.1 g/dl (14.0-18.0) 10/30/23 18:17 POC Hgb 14.3 g/dl (14.0-18.0) 10/30/23 18:27 Hct 42.3 % (42.0-52.0) 10/30/23 18:17 POC Hct 42 % (42-52) 10/30/23 18:27 MCV 94.6 fL (80.0-100.0) 10/30/23 18:17 MCH 31.5 pg (25.0-34.0) 10/30/23 18:17 MCHC 33.3 g/dL (32.0-36.0) 10/30/23 18:17 RDW Std Deviation 45.8 fL (36.4-46.3) 10/30/23 18:17 RDW Coeff of Wild 13.2 % (11.5-14.5) 10/30/23 18:17 Plt Count 177 K/uL (130-400) 10/30/23 18:17 MPV 10.0 fL (9.4-12.4) 10/30/23 18:17 Immature Gran % (Auto) 0.4 % 10/30/23 18:17 Neut % (Auto) 72.7 % 10/30/23 18:17 Lymph % (Auto) 18.2 % 10/30/23 18:17 [place] % (Auto) 6.9 % 10/30/23 18:17 Eos % (Auto) 1.4 % 10/30/23 18:17 Baso % (Auto) 0.4 % 10/30/23 18:17 Neut # (Auto) 5.59 K/uL (1.40-6.50) 10/30/23 18:17 Lymph # (Auto) 1.40 K/uL (1.20-3.40) 10/30/23 18:17 [place] # (Auto) 0.53 K/uL (0.11-0.59) 10/30/23 18:17 Eos # (Auto) 0.11 K/uL (0.00-0.50) 10/30/23 18:17 Baso # (Auto) 0.03 K/uL (0.00-0.20) 10/30/23 18:17 Immature Gran # (Auto) 0.03 K/uL (0.01-0.20) 10/30/23 18:17 PT 10.8 Seconds (9.0-12.0) 10/30/23 18:17 INR 1.0 (0.9-1.1) 10/30/23 18:17 APTT 24 Seconds (21-31) 10/30/23 18:17 PTT Ratio 0.9 10/30/23 18:17 POC Sodium 138 mmol/L (135-144) 10/30/23 18:27 Sodium 137 mmol/L (136-145) 10/30/23 18:17 POC Potassium 4.2 mmol/L (3.3-5.0) 10/30/23 18:27 Potassium 4.2 mmol/L (3.5-5.1) 10/30/23 18:17 POC Chloride 104 mmol/L (101-112) 10/30/23 18:27 Chloride 104 mmol/L (98-107) 10/30/23 18:17 Carbon Dioxide 24 mmol/L (21-32) 10/30/23 18:17 POC Total CO2 24 mmol/L (24-31) 10/30/23 18:27 Anion Gap 9 (3-11) 10/30/23 18:17 POC Anion Gap 16.0 mmol/L (16-25) 10/30/23 18:27 POC BUN 14 mg/dl (7-18) 10/30/23 18:27 BUN 15 mg/dl (6-23) 10/30/23 18:17 Creatinine 1.24 mg/dl (0.6-1.4) 10/30/23 18:17 POC Creatinine 1.3 mg/dl (0.6-1.3) 10/30/23 18:27 Est Cr Clr Drug Dosing 44.4 ml/min 10/30/23 18:17 Est GFR ( Amer) 63.2 ml/min 10/30/23 18:17 Est GFR (Non-Af Amer) 54.6 ml/min 10/30/23 18:17 BUN/Creatinine Ratio 12.1 (10-20) 10/30/23 18:17 Glucose 172 mg/dl (70-99(Fasting)) H 10/30/23 18:17 POC Glucose (other) 166 mg/dl (70-99) H 10/30/23 18:27 Calcium 9.5 mg/dl (8.6-10.3) 10/30/23 18:17 POC Ioniz Calcium Renee 1.15 mmol/l (1.12-1.32) 10/30/23 18:27 Total Bilirubin 1.1 mg/dl (0.2-1.0) H 10/30/23 18:17 AST 22 U/L (13-39) 10/30/23 18:17 ALT 23 U/L (7-52) 10/30/23 18:17 Alkaline Phosphatase 98 U/L (34-104) 10/30/23 18:17 Troponin I High Sens 6.2 pg/ml (0-20) 10/30/23 18:17 Total Protein 6.9 gm/dl (6.0-8.3) 10/30/23 18:17 Albumin 4.3 gm/dl (3.4-5.0) 10/30/23 18:17 Globulin 2.6 gm/dl (2.5-4.0) 10/30/23 18:17 Albumin/Globulin Ratio 1.7 (0.9-2) 10/30/23 18:17 Lipase 24 U/L (11-82) 10/30/23 18:17 SARS-CoV-2 (PCR) NEGATIVE (Negative) 10/30/23 18:17 Influenza Type A (PCR) Negative (Neg) 10/30/23 18:17 Influenza Type B (PCR) Negative (Neg) 10/30/23 18:17 RSV (RT-PCR) Negative (Neg) 10/30/23 18:17 Impressions Chest X-Ray 10/30/23 18:12 XR chest 1V portable CLINICAL HISTORY: Chest pain, nonspecific TECHNIQUE: Single frontal radiograph of the chest was obtained. Comparison: None available at the time of this dictation. FINDINGS: No lines and tubes are seen. Calcified aortic knob is seen. The lungs are clear. No evidence of pleural effusion or pneumothorax. IMPRESSION: No acute chest disease. ACT 112: Negative or not required by law. Electronically signed by: Juan Cuevas M.D. 10/30/2023 6:46 PM Code Status & VTE Plan Code Status Full code PG Care Time/CCT Total # of Minutes Spent Total Time Spent with Patient: Total time spent is greater than 50% in coordination of care (as documented) at patient's floor/unit and/or counseling patient: Coding Level of Care Code 29663 INT INP/OBS CARE 3/75MIN Diagnoses Atypical chest pain R07.89 CAD (coronary artery disease) I25.10 Aortic stenosis I35.0 Primary hypertension I10 Dyslipidemia E78.5 Nausea and vomiting R11.2 Benign prostatic hyperplasia with urinary hesitancy N40.1; R39.11
[2023-10-30] MEDS ORDERED: ONDANSETRON INJ 2 MG/ML 2 ML VIAL IV PRN (23:22)
[2023-10-30] MEDS ORDERED: ACETAMINOPHEN 325 MG TAB PO PRN (23:22)
[2023-10-30] MEDS: LACTATED RINGER'S 1,000 ML IV SCH (23:46)
[2023-10-30] MEDS: TAMSULOSIN HCL 0.4 MG CAP PO SCH (23:47)
[2023-10-30] MEDS: lisinopril 20 MG TAB PO ONE (23:48)
[2023-10-31 06:07] LABS: Basophils # (auto) 0.02 K/uL (0.00-0.20); Basophils % (auto) 0.3 %; Eosinophils % (auto) 1.4 %; Hematocrit (blood only) 37.3 % (42.0-52.0); Hemoglobin 12.7 g/dl (14.0-18.0); Immature Granulocytes # (auto) 0.02 K/uL (0.01-0.20); Immature Granulocytes % (auto) 0.3 %; Lymphocytes # (auto) 1.44 K/uL (1.20-3.40); Lymphocytes % (auto) 20.2 %; Mean Corpuscular Hemoglobin 31.8 pg (25.0-34.0); Mean Corpuscular Volume 93.5 fL (80.0-100.0); Mean Platelet Volume 9.7 fL (9.4-12.4); Monocytes # (auto) 0.71 K/uL (0.11-0.59); Neutrophils # (auto) 4.84 K/uL (1.40-6.50); Neutrophils % (auto) 67.8 %; Platelet Count 165 K/uL (130-400); RDW Coefficient of Variation 13.2 % (11.5-14.5); RDW Standard Deviation 45.6 fL (36.4-46.3); Red Blood Count 3.99 M/uL (4.70-6.10); White Blood Count 7.13 K/ul (4.8-10.8)
[2023-10-31 06:21] LABS: Albumin Level 3.6 gm/dl (3.4-5.0); BUN Creatinine Ratio 14.4 (10-20); Calcium 8.6 mg/dl (8.6-10.3); Creatinine Clr Calc Pharmacy 56.8 ml/min; Est GFR (African American) 85.1 ml/min; Est GFR (Non-African American) 73.4 ml/min; Magnesium 1.9 mg/dl (1.7-2.4); Phosphorus 3.6 mg/dl (2.5-4.9)
[2023-10-31 06:27] LABS: Troponin I High Sensitivity 7.6 pg/ml (0-20)
--- NOTE | 2023-10-31 06:57 | Electrocardiogram Report ---
Test Reason : Blood Pressure : / mmHG Vent. Rate : 075 BPM Atrial Rate : 075 BPM P-R Int : 250 ms QRS Dur : 138 ms QT Int : 434 ms P-R-T Axes : 049 043 016 degrees QTc Int : 484 ms Sinus rhythm with 1st degree A-V block Right bundle branch block Abnormal ECG No previous ECGs available Confirmed by Foster Edwards ([id number]) on 10/31/2023 6:56:42 AM Referred By: REFERRED SELF Confirmed By:Guido Edwards
[2023-10-31] MEDS: PANTOprazole 40 MG TAB PO SCH (07:58)
[2023-10-31] MEDS: CHOLECALCIFEROL 125 MCG (5,000 UNITS) TAB PO SCH (07:58)
[2023-10-31] MEDS: ATORVASTATIN 40 MG TAB PO SCH (07:59)
[2023-10-31] MEDS: ASPIRIN 81 MG ECTAB PO SCH (07:59)
[2023-10-31] MEDS: amLODIPine BESYLATE 5 MG TAB PO SCH (08:00)
[2023-10-31] MEDS: FINASTERIDE 5 MG TAB PO SCH (08:00)
--- NOTE | 2023-10-31 09:10 | XCELERA ---
[id number]
--- NOTE | 2023-10-31 12:55 | Hospitalist Progress Note ---
Date of Service October 31, 2023 Assessment & Plan (1) Chest pressure: Plan: Patient ruled out for ACS with multiple troponins negative EKG with RBBB but otherwise no ST changes Echo with a chronic LV wall motion abnormality but he had such on his previous echo in 2021 [id number], he reported having had chest pressure while carrying heavy objects at [facility] Further, the pressure was similar to the types of symptoms he had been having in 2019 leading up to his LAD stent being placed Thus - plan for Lexiscan nuclear stress test in am tomorrow, 10/31 NPO after MN tonight continue all prior cardiac meds check lipid profile in am (2) Benign prostatic hyperplasia with urinary hesitancy: Plan: cont finasteride cont flomax (3) Prediabetes: Plan: last a1c was 5.85% in 06/2023 recheck in am (4) Aortic stenosis: Plan: mild on echo doubt contributed to presenting symptoms (5) CAD (coronary artery disease): Plan: 2019 cath showed - * Left main: Left main was short and bifurcated into the left anterior descending and left circumflex arteries * Left anterior descending: Left anterior descending was a large transapical vessel. He had a complex 90% lesion in its proximal portion. It produced 2 large diagonal branches both of which he had moderate disease throughout. There were luminal irregularities in the distal portion of the vessel. * Left circumflex: Left circumflex was a nondominant vessel. It produced essentially a single large OM system. There was a medium size ongoing AV groove vessel. There was a 50% stenosis in the proximal portion of the left circumflex. The remainder of the vessel had no obstructive lesions * Right coronary artery: The right coronary artery was noted to be calcified. He had luminal irregularities throughout its course. Most severe stenosis is approximately 50% in its proximal portion. Following diagnostic cath he had a single JANET placed to the 90% LAD lesion Cont asa, statin, MATHEW Not on beta zion due to mild bradycardia? (6) Dyslipidemia: Plan: check lipids and TSH in am cont statin (7) Dizziness: Plan: some of his symptoms - dizziness, nausea, emesis, appearing pale, etc - may have been due to vasovagal type physiology however, he also had chest pressure during the episode at his [facility] his record indicates a history of vasovagals he has had no dizziness since admission cont to monitor Plan left message for pt's on her voicemail this evening Admission and Anticipated Discharge Date Admission Date: October 30, 2023 Subjective tele overnight wnl no chest pressure, pain or tightness no dyspnea no dyspnea on exertion no pre-syncope patient reports that he was at his [employer] attending a picnic when his symptoms began yesterday he was dizzy, lightheaded, had nausea, was pale (per bystanders), and developed chest pressure while carrying large pots of soup patient reports that in 2019 - prior to his stress test/heart cath - he had been having fatigue and weakness with exertion had some minor chest pressure at that time as well he cannot tell me how long the chest pressure lasted yesterday when he was at his [employer] he does recall having chest pressure upon presentation to the ER yesterday - again he cannot say how long it lasted for but it went away quickly after he got here he repots living a fairly sedentary life with exertion he has had fatigue of late Review of Systems 2 Review of Systems: gen - no fevers cv - no orthopnea, no PND, no edema pulm - no cough GI - no abd pain or N/V today Physical Exam 2 Physical Exam: gen - NAD, looks good neck - no JVD mouth - MMM heart - 2/6 holosystolic murmur RUSB, RRR, s1 s2 lungs - CTA b/l chest - no reproducible chest wall tenderness to palpation abd - soft NT ND BS+; no HSM ext - no edema , pulses 2+ b/l Results & Data Results & Data Vital Signs (Past 12 Hours) Vital Signs Temp Pulse Resp BP Pulse Ox O2 Del Method 10/31/23 11:45 36.5 C 74 18 132/71 96 Room Air 10/31/23 07:41 36.7 C 63 18 144/84 H 96 Room Air 10/31/23 03:03 36.7 C 67 18 124/73 97 Room Air Laboratory Results Laboratory Results - last 24 hr 10/31/23 10/31/23 05:33 11:06 WBC 7.13 RBC 3.99 L Hgb 12.7 L Hct 37.3 L MCV 93.5 MCH 31.8 MCHC 34.0 RDW Std Deviation 45.6 RDW Coeff of Wild 13.2 Plt Count 165 MPV 9.7 Immature Gran % (Auto) 0.3 Neut % (Auto) 67.8 Lymph % (Auto) 20.2 Angelina % (Auto) 10.0 Eos % (Auto) 1.4 Baso % (Auto) 0.3 Neut # (Auto) 4.84 Lymph # (Auto) 1.44 Angelina # (Auto) 0.71 H Eos # (Auto) 0.10 Baso # (Auto) 0.02 Immature Gran # (Auto) 0.02 Sodium 140 Potassium 4.0 Chloride 110 H Carbon Dioxide 24 Anion Gap 6 BUN 14 Creatinine 0.97 Est Cr Clr Drug Dosing 56.8 Est GFR ( Amer) 85.1 Est GFR (Non-Af Amer) 73.4 BUN/Creatinine Ratio 14.4 Glucose 94 Calcium 8.6 Phosphorus 3.6 Magnesium 1.9 Troponin I High Sens 7.6 10.7 Albumin 3.6 Diagnostic Findings echocardiogram - PG Care Time/CCT Total # of Minutes Spent Total Time Spent with Patient: Total time spent is greater than 50% in coordination of care (as documented) at patient's floor/unit and/or counseling patient: Coding Level of Care Code 42415 SUB INP/OBS CARE 2/35MIN Diagnoses Chest pressure R07.89 Benign prostatic hyperplasia with urinary hesitancy N40.1; R39.11 Prediabetes R73.03 Aortic stenosis I35.0 CAD (coronary artery disease) I25.10 Dyslipidemia E78.5 Dizziness R42
[2023-10-31] MEDS: lisinopril 20 MG TAB PO SCH (20:20)
[2023-11-01 07:08] LABS: Chol HDL Ratio 2.4 (0-5)
[2023-11-01 07:22] LABS: Thyroid Stimulating Hormone 2.112 uIu/ml (0.300-4.500)
--- NOTE | 2023-11-01 14:47 | Myocardial Perfusion Study ---
Date of Service November 01, 2023 Myocardial Perfusion Study k Myocardial Perfusion Study Report LEXISCAN STRESS MYOCARDIAL PERFUSION IMAGING STUDY Indication: Atypical chest pain Brief description: Rest portion-at 11:45 AM the patient was injected with 10.0 mCi of Tc 99m Cardiolite IV. 1 hour following the injection, myocardial perfusion imaging was performed in multiple projections. Stress portion-baseline heart rate, blood pressure, and EKG were obtained. The same parameters were monitored continuously for 3 minutes of infusion and 3 minutes during recovery. They were intermittently recorded. Patient was infused with 0.4 mg Lexiscan IV followed immediately by injection of 31.2 mCi of Tc 99m Cardiolite IV. 30 minutes following injection, myocardial perfusion imaging was performed in multiple projections similar to those utilized for the rest portion. Patient reported no symptoms with infusion. Hemodynamic and electrocardiographic findings: 1. Resting heart rate was 66 bpm and neris to a maximum of 112 bpm with Lexiscan infusion. 2. Resting blood pressure was 150/77 mmHg and dropped to a minimum of 137/82 mmHg with Lexiscan infusion. 3. Baseline EKG demonstrated normal sinus rhythm, right bundle branch block and first-degree AV block. There were no additional ischemic ST-T segment or T wave changes with infusion. No Lexiscan induced arrhythmias. Myocardial perfusion imaging findings: 1. Raw data analysis demonstrates mild soft tissue attenuation. This is a good quality study. 2. Gated myocardial perfusion imaging demonstrates normal size LV, normal EF calculated at 72%, and normal wall motion. 3. Rest and stress myocardial perfusion imaging demonstrates normal rest and stress myocardial perfusion. Therefore, there is no evidence of Lexiscan induced myocardial ischemia or prior infarction. 4. This is a normal Lexiscan stress test. Low risk of myocardial ischemia. No prior studies for comparison. [facility] [place] Myocardial perfusion code Indication for Procedure (1) Atypical chest pain: (2) CAD (coronary artery disease): Procedure Code Procedure 1: Myocardial Perfusion Codes: 85099 Cardiovascular Stress Test, multiple Procedure 2: Myocardial Perfusion Codes: 14371 Cardiovascular Stress Test, supervision only Procedure 3: Myocardial Perfusion Codes: 51240 Cardiovascular Stress Test, interpretation and report
[2023-11-01] MEDS: SODIUM CHLORIDE 0.9% 500 ML IV SCH (14:51)
[2023-11-01] MEDS: REGADENOSON 0.4 MG/5 ML SYR IV ONE (14:59)
--- NOTE | 2023-11-01 16:58 | Discharge Summary ---
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 Further, the pressure was similar to the types of symptoms he had been having in 2019 leading up to his LAD stent being placed Thus - Mr Granado underwent Lexiscan nuclear stress test while here This returned NEGATIVE for signs of ischemia (see full report) All prior cardiac medications were continued; the only change was that of a reduction in his lisinopril from 20mg/day to 10mg/day due to dizziness from orthostasis (see below) Lipid profile parameters were excellent (LDL 41, HDL 42, trigs 86) Many of his pre-admission symptoms were vasovagal in description (dizzy, lightheaded, nausea, vomiting, cold/clammy/sweaty, bystanders said he looked pale, etc) and thus it is possible that some of the chest symptoms were due to such See discussion below (2) CAD (coronary artery disease): 2019 cath showed - * Left main: Left main was short and bifurcated into the left anterior descending and left circumflex arteries * Left anterior descending: Left anterior descending was a large transapical vessel. He had a complex 90% lesion in its proximal portion. It produced 2 large diagonal branches both of which he had moderate disease throughout. There were luminal irregularities in the distal portion of the vessel. * Left circumflex: Left circumflex was a nondominant vessel. It produced essentially a single large OM system. There was a medium size ongoing AV groove vessel. There was a 50% stenosis in the proximal portion of the left circumflex. The remainder of the vessel had no obstructive lesions * Right coronary artery: The right coronary artery was noted to be calcified. He had luminal irregularities throughout its course. Most severe stenosis is approximately 50% in its proximal portion. Following diagnostic cath he had a single JANET placed to the 90% LAD lesion Cont asa, statin, MATHEW albeit at a lower dose See #1 above Not on beta zion due to mild bradycardia? (3) Dizziness: some of his symptoms - dizziness, nausea, emesis, appearing pale, etc - may have been due to vasovagal type physiology his record indicates a history of vasovagals especially with blood draws, etc. orthostatic BPs showed a 25 point drop in systolic BPs with standing he has frequent dizziness at home with standing up (usually lasts a few seconds then passes) recommended he reduce his lisinopril from 20mg/day to 10mg/day he has a BP cuff at home and I asked him to monitor his BPs both sitting & standing (4) Benign prostatic hyperplasia with urinary hesitancy: cont finasteride cont flomax if his dizziness/orthostasis persists could consider reduction in flomax from 0.4mg BID to 0.4mg once daily (5) Prediabetes: last Hba1c was 5.85% in 06/2023 he has been a mild pre-diabetic for several years fasting glucose was 94 while here (6) Aortic stenosis: mild on echo doubt contributed to presenting symptoms (7) Dyslipidemia: lipid profile parameters were excellent - LDL 41, HDL 42, trigs 86 cont statin TSH was wnl Notes For Next Care Provider Medication Changes From Visit Due to mild orthostasis and chronic dizziness from such advised -- REDUCE lisinopril from 20mg/day to 10mg/day Admission HPI Per Admitting Provider The patient is an 78-year-old male with a past medical history including history of urethral stricture, lumbosacral disc degeneration, SNHL bilaterally, BPH with LUTS, primary hypertension, aortic stenosis, CAD and dyslipidemia. 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 Due to his history of coronary artery disease and stents in 2019, he became concerned, and presented to the ED for assessment Discharge Exam gen - NAD, looks great neck - no JVD mouth - MMM heart - 2/6 holosystolic murmur RUSB, RRR, s1 s2 lungs - CTA b/l chest - no reproducible chest wall tenderness to palpation abd - soft NT ND BS+; no HSM ext - no edema , pulses 2+ b/l Updated Medication List Medication Instructions Recorded Confirmed Type aspirin 81 mg tablet,delayed 81 mg PO QAM #30 tabs 09/01/19 11/02/23 Rx release cholecalciferol (vitamin D3) 125 125 mcg PO DAILY 12/12/21 11/02/23 History mcg (5,000 unit) capsule amlodipine 5 mg tablet 5 mg PO DAILY #90 tabs 02/26/23 11/02/23 Rx atorvastatin 80 mg tablet 80 mg PO QAM #90 tabs 03/31/23 11/02/23 Rx omeprazole 20 mg capsule,delayed 20 mg PO DAILY #90 caps 03/31/23 11/02/23 Rx release tamsulosin 0.4 mg capsule 0.4 mg PO BID #60 caps 07/15/23 11/02/23 Rx finasteride 5 mg tablet 5 mg PO QAM 10/30/23 11/02/23 History lisinopril 20 mg tablet 10 mg (1/2 x 20 mg) PO QPM #90 tabs 11/01/23 11/02/23 Rx Hospital Stay Data Procedures Performed 1. Echocardiogram: 2. Myocardial Perfusion Study Report LEXISCAN STRESS MYOCARDIAL PERFUSION IMAGING STUDY Indication: Atypical chest pain Brief description: Rest portion-at 11:45 AM the patient was injected with 10.0 mCi of Tc 99m Cardiolite IV. 1 hour following the injection, myocardial perfusion imaging was performed in multiple projections. Stress portion-baseline heart rate, blood pressure, and EKG were obtained. The same parameters were monitored continuously for 3 minutes of infusion and 3 minutes during recovery. They were intermittently recorded. Patient was infused with 0.4 mg Lexiscan IV followed immediately by injection of 31.2 mCi of Tc 99m Cardiolite IV. 30 minutes following injection, myocardial perfusion imaging was performed in multiple projections similar to those utilized for the rest portion. Patient reported no symptoms with infusion. Hemodynamic and electrocardiographic findings: 1. Resting heart rate was 66 bpm and neris to a maximum of 112 bpm with Lexiscan infusion. 2. Resting blood pressure was 150/77 mmHg and dropped to a minimum of 137/82 mmHg with Lexiscan infusion. 3. Baseline EKG demonstrated normal sinus rhythm, right bundle branch block and first-degree AV block. There were no additional ischemic ST-T segment or T wave changes with infusion. No Lexiscan induced arrhythmias. Myocardial perfusion imaging findings: 1. Raw data analysis demonstrates mild soft tissue attenuation. This is a good quality study. 2. Gated myocardial perfusion imaging demonstrates normal size LV, normal EF calculated at 72%, and normal wall motion. 3. Rest and stress myocardial perfusion imaging demonstrates normal rest and stress myocardial perfusion. Therefore, there is no evidence of Lexiscan induced myocardial ischemia or prior infarction. 4. This is a normal Lexiscan stress test. Low risk of myocardial ischemia. No prior studies for comparison. Diagnostic Imagining Performed Chest X-Ray 10/30/23 18:12 XR chest 1V portable CLINICAL HISTORY: Chest pain, nonspecific TECHNIQUE: Single frontal radiograph of the chest was obtained. Comparison: None available at the time of this dictation. FINDINGS: No lines and tubes are seen. Calcified aortic knob is seen. The lungs are clear. No evidence of pleural effusion or pneumothorax. IMPRESSION: No acute chest disease. ACT 112: Negative or not required by law. Electronically signed by: Juan Cuevas M.D. 10/30/2023 6:46 PM Pending Results Patient Have Any Pending Studies at Discharge: No Discharge Instructions Given to Patient (Per Discharging Provider) Mr Granado, Kenneth were hospitalized due to an episode of dizziness, nausea, feeling sweaty, and then developing chest pressure. During the stay we did NOT find evidence of a heart attack. Your EKGs, blood work for the heart, echocardiogram, and your stress test were all acceptable. The stress test was NORMAL. This would suggest that your chest pressure was not from blocked coronary arteries. We checked your blood pressure with standing and it drops when you go from a seated to standing position. This is the likely reason for your dizziness that you get at home. It was also the likely cause of your dizziness at your evangelical. Recommendations - 1. Please LOWER your lisinopril dose from 20mg/day to 10mg/day. Simply cut the 20mg tablet in half and take a 1/2 tablet daily. 2. Please monitor your blood pressure at home. When you check your readings first check it while sitting down, then recheck the blood pressure about 1 minute after you stand up. Write both numbers down in a notebook and show these to your family doctor and your instructor weaving. 3. We have made no other changes or additions to your usual medicines except for the lisinopril. 4. Stay well-hydrated especially on the hot, humid days. Use the color of your urine as a guide to how well-hydrated you are. If the urine is dark yellow/concentrated this means that you should drink extra water. Follow-up - see separate section Return to [facility] if - * you have severe dizziness or lightheadedness * you have recurrent episodes of chest pain/pressure/tightness * you have shortness of breath * any other concerns It was our pleasure to care for you! -Dr North Total Time Total Time Spent Total Time Spent (In Minutes): 40 Coding Level of Care Code 56155 INP/OBS DISCH >30 MIN Diagnoses Chest pressure R07.89 CAD (coronary artery disease) I25.10 Dizziness R42 Benign prostatic hyperplasia with urinary hesitancy N40.1; R39.11 Prediabetes R73.03 Aortic stenosis I35.0 Dyslipidemia E78.5
== END 2023-11-01 18:13 | disposition home or self-care (01) ==
LOC: 2E 18:06 → ED 18:06 → SUATTDRO 20:36 → 2E 23:04